=== PATIENT | female | born 1950 | race American Indian/Alaskan Native ===

== ENCOUNTER 2017-06-04 18:29 | Inpatient (IN) | payer MEDICARE, MEDICAID ==
[~2017-06-04] VITALS: Ht 154.9 cm; Wt 82.1 kg
[~2017-06-04 18:29] MED LIST: ALBU8HFA PO; BLOO-579 PERCUTAN; CLIN-80 PO; CYCL-394 PO; CYCL10TA10 PO; FAMO40TA73 PO; INSU100C4 SQ; PHEN-873 PO; PRED50TA PO
[2017-06-04] MEDS ORDERED: ondansetron/PF 4mg/2ml inj IV ONE (20:10)
[2017-06-04] MEDS ORDERED: normal saline 1000ML IV soln IVB ONE (20:10)
[2017-06-04 20:45] LABS: BASOPHILS # (AUTO) 0.1 X10'3 (0-0.2); BASOPHILS % (AUTO) 0.4 % (0-1); EOSINOPHILS % (AUTO) 0.1 % (0-6); HEMATOCRIT 40.7 % (35.0-45.0); LYMPHOCYTES # (AUTO) 1.1 X10'3 (1.1-4.8); LYMPHOCYTES % (AUTO) 6.2 % (21-51); MEAN CORPUSCULAR HEMOGLOBIN 30.8 PG (27.0-31.0); MEAN CORPUSCULAR HGB CONC 34.4 % (33.0-36.5); MEAN CORPUSCULAR VOLUME 89.7 FL (78-98); MEAN PLATELET VOLUME 9.3 FL (7.4-10.4); MONOCYTES # (AUTO) 0.9 X10'3 (0-0.9); MONOCYTES % (AUTO) 5.1 % (2-12); NEUTROPHILS # (AUTO) 15.9 X10'3 (1.8-7.7); NEUTROPHILS % (AUTO) 88.2 % (42-75); PLATELET COUNT 245 X10'3 (140-440); RED BLOOD COUNT 4.54 X10'6 (4.20-5.60); RED CELL DISTRIBUTION WIDTH 12.5 % (11.5-14.5)
[2017-06-04 21:03] LABS: ALANINE AMINOTRANSFERASE 35 U/L (12-78); ALBUMIN 3.5 G/DL (3.4-5.0); ALBUMIN/GLOBULIN RATIO 0.7 (1.1-1.5); ALKALINE PHOSPHATASE 210 IU/L (46-116); ANION GAP 10 (8-16); ASPARTATE AMINO TRANSFERASE 32 U/L (10-37); BILIRUBIN,TOTAL 0.4 MG/DL (0.1-1.0); BLOOD UREA NITROGEN 50 MG/DL (7-18); BUN/CREATININE RATIO 20.8 (6.6-38.0); CALCIUM 9.1 MG/DL (8.5-10.1); CHLORIDE 98 MMOL/L (99-107); GLUCOSE 420 MG/DL (70-104); LIPASE 157 U/L (73-393); POTASSIUM 5.6 MMOL/L (3.5-5.1); SODIUM 131 MMOL/L (135-145); TOTAL CARBON DIOXIDE 23.1 MMOL/L (24-32); TOTAL PROTEIN 8.3 G/DL (6.4-8.2); eGFR 20 ML/MIN
[2017-06-04 21:52] LABS: CLARITY,URINE CLEAR (Clear); COLOR,URINE YELLOW (Yellow); GLUCOSE, URINE >=1000 mg/dl (Neg); KETONES,URINE NEGATIVE (Neg); LEUKOCYTE ESTERASE ,URINE NEGATIVE (Neg); NITRITES, URINE NEGATIVE (Neg); OCCULT BLOOD,URINE SMALL (Neg); PH,URINE 5.5 (4.8-8.0); PROTEIN,URINE 100 mg/dl (Neg); UA COLLECTION TYPE CLN CATCH MIDSTREAM; UROBILINOGEN,URINE 0.2 E.U/dL (0.2-1.0)
[2017-06-04 21:58] LABS: BACTERIA,URINE 1+ /HPF (Neg); RBC,URINE 0-2 /HPF (0-2); SQUAMOUS EPITHELIAL CELL,UR FEW /LPF (FEW)
[2017-06-04] MEDS ORDERED: levoFLOXACIN-Levaquin 500mg/D5 100 ML IV ONE (22:15)
[2017-06-04] MEDS ORDERED: CefTRIAXone 2gm/NS 100ml IVPB 100 ML IV ONE (23:05)
[2017-06-04] MEDS ORDERED: TRAM50TA2 PO (23:07)
[2017-06-04] MEDS ORDERED: ondansetron/PF 4mg/2ml inj IV PRN (23:30)
[2017-06-04] MEDS ORDERED: mag hydrox/Alum hydrox/simeth 30ml oral suspension PO PRN (23:30)
[2017-06-04] MEDS ORDERED: magnesium hydroxide 30ml (MOM) UD suspension PO PRN (23:30)
[2017-06-04] MEDS ORDERED: dextrose ORAL solution 15 GM/59 ML bottle PO PRN ×2 (23:35)
[2017-06-04] MEDS ORDERED: dextrose 50%-water 50ml dispensing syringe IV PRN ×2 (23:35)
[2017-06-04] MEDS ORDERED: MESSAGE TO PHARMACY PO ONE (23:35)
[2017-06-04] MEDS ORDERED: glucagon, human recombinant 1mg kit SUBCUT PRN (23:35)
[2017-06-04] MEDS ORDERED: ALBUTEROL PO PRN (23:40)
[2017-06-04] MEDS ORDERED: albuterol 2.5 MG/3 ML nebule NEB PRN (23:50)
[2017-06-05] MEDS ORDERED: LANTUS SQ (00:05)
[2017-06-05] MEDS ORDERED: FURO-150 PO (00:05)
[2017-06-05] MEDS ORDERED: insulin glargine (Lantus) pen - multi-dose SQ ONE (00:27)
[2017-06-05] MEDS ORDERED: insulin Lispro (HumaLOG) vial - multi-dose SQ ONE (00:27)
[2017-06-05 00:30] VITALS: BP 157/67
[2017-06-05] MEDS: insulin Lispro (HumaLOG) vial - multi-dose SQ SCH ×4 (00:35→19:04)
[2017-06-05] MEDS ORDERED: ACET-812 PO (00:41)
[2017-06-05] MEDS ORDERED: ASPI81TA52 PO (00:41)
[2017-06-05] MEDS ORDERED: LISI-642 PO (00:41)
[2017-06-05] MEDS: acetaminophen 325mg tablet PO PRN ×2 (01:28→10:04)
[2017-06-05 08:00] VITALS: BP 108/63
[2017-06-05] MEDS: CefTRIAXone 2gm/NS 100ml IVPB 100 ML IV SCH (10:02)
[2017-06-05] MEDS: heparin, porcine 5000 units/ml vial SQ SCH ×2 (10:02→20:47)
[2017-06-05] MEDS: famotidine 20mg tablet PO SCH (10:05)
[2017-06-05 11:00] VITALS: BP 125/50
[2017-06-05] MEDS: lactobacillus rhamnosus 10,000 MMU CELLS/CAPSULE PO SCH (18:07)
[2017-06-05 19:30] VITALS: BP 148/70
[2017-06-05] MEDS: insulin glargine (Lantus) pen - multi-dose SQ SCH (22:19)
[2017-06-06] VITALS: BP 149/66
[2017-06-06] MEDS: acetaminophen 325mg tablet PO PRN ×2 (02:05→21:33)
[2017-06-06] MEDS: CefTRIAXone 2gm/NS 100ml IVPB 100 ML IV SCH (07:21)
[2017-06-06] MEDS: famotidine 20mg tablet PO SCH (07:23)
[2017-06-06] MEDS: heparin, porcine 5000 units/ml vial SQ SCH ×2 (07:25→21:25)
[2017-06-06] MEDS: lactobacillus rhamnosus 10,000 MMU CELLS/CAPSULE PO SCH ×2 (07:25→18:01)
[2017-06-06 08:00] VITALS: BP 145/73
[2017-06-06] MEDS: insulin Lispro (HumaLOG) vial - multi-dose SQ SCH ×3 (09:23→18:59)
[2017-06-06 11:00] VITALS: BP 156/64
[2017-06-06 13:00] LABS: BASOPHILS % (AUTO) 0.5 % (0-1); EOSINOPHILS # (AUTO) 0.2 X10'3 (0-0.9); EOSINOPHILS % (AUTO) 3.2 % (0-6); HEMATOCRIT 34.5 % (35.0-45.0); HEMOGLOBIN 12.1 g/dl (12.0-16.0); LYMPHOCYTES # (AUTO) 2.2 X10'3 (1.1-4.8); LYMPHOCYTES % (AUTO) 39.5 % (21-51); MEAN CORPUSCULAR HEMOGLOBIN 30.9 PG (27.0-31.0); MEAN CORPUSCULAR VOLUME 88.3 FL (78-98); MEAN PLATELET VOLUME 8.1 FL (7.4-10.4); MONOCYTES # (AUTO) 0.5 X10'3 (0-0.9); MONOCYTES % (AUTO) 8.5 % (2-12); NEUTROPHILS # (AUTO) 2.7 X10'3 (1.8-7.7); NEUTROPHILS % (AUTO) 48.3 % (42-75); PLATELET COUNT 214 X10'3 (140-440); RED BLOOD COUNT 3.91 X10'6 (4.20-5.60); RED CELL DISTRIBUTION WIDTH 12.7 % (11.5-14.5); WHITE BLOOD COUNT 5.7 X10'3 (4.5-11.0)
[2017-06-06 13:12] LABS: ALBUMIN 2.9 G/DL (3.4-5.0); ANION GAP 8 (8-16); BLOOD UREA NITROGEN 28 MG/DL (7-18); BUN/CREATININE RATIO 16.8 (6.6-38.0); CALCIUM 8.9 MG/DL (8.5-10.1); CHLORIDE 105 MMOL/L (99-107); CREATININE 1.67 MG/DL (0.40-0.90); GLUCOSE 166 MG/DL (70-104); POTASSIUM 4.4 MMOL/L (3.5-5.1); SODIUM 140 MMOL/L (135-145); eGFR 31 ML/MIN
[2017-06-06 19:00] VITALS: BP 167/78
[2017-06-06] MEDS: insulin glargine (Lantus) pen - multi-dose SQ SCH (21:31)
[2017-06-06] MEDS ORDERED: levoFLOXACIN-Levaquin 750MG/D5 150 ML IV SCH (22:00)
[2017-06-07 00:15] VITALS: BP 140/78
[2017-06-07] MEDS: lactobacillus rhamnosus 10,000 MMU CELLS/CAPSULE PO SCH (07:39)
[2017-06-07] MEDS: famotidine 20mg tablet PO SCH (07:40)
[2017-06-07] MEDS: CefTRIAXone 2gm/NS 100ml IVPB 100 ML IV SCH (07:40)
[2017-06-07 08:00] VITALS: BP 179/84
[2017-06-07] MEDS: heparin, porcine 5000 units/ml vial SQ SCH (09:05)
[2017-06-07] MEDS: insulin Lispro (HumaLOG) vial - multi-dose SQ SCH (09:14)
[2017-06-07 10:17] LABS: CLARITY,URINE CLEAR (Clear); COLOR,URINE STRAW (Yellow); GLUCOSE, URINE >=1000 mg/dl (Neg); KETONES,URINE NEGATIVE (Neg); LEUKOCYTE ESTERASE ,URINE NEGATIVE (Neg); NITRITES, URINE NEGATIVE (Neg); OCCULT BLOOD,URINE TRACE-LYSED (Neg); PROTEIN,URINE 30 mg/dl (Neg); UROBILINOGEN,URINE 0.2 E.U/dL (0.2-1.0)
[2017-06-07 10:20] LABS: UA COLLECTION TYPE NON-SPECIFIED
[2017-06-07 10:28] LABS: BACTERIA,URINE NONE SEEN /HPF (Neg); MUCUS STRANDS NONE SEEN /LPF (Neg); RBC,URINE NONE SEEN /HPF (0-2); SQUAMOUS EPITHELIAL CELL,UR FEW /LPF (FEW); WBC,URINE 0-4 /HPF (0-4)
[2017-06-07 10:29] LABS: TRANSITIONAL EPI CELLS,URINE FEW /HPF
[2017-06-07 11:32] VITALS: BP 115/70
[2017-06-07] MEDS ORDERED: AMLO-93 PO (11:54)
[2017-06-07] MEDS ORDERED: SULF1TAB49 PO (11:54)
== END 2017-06-07 13:15 | disposition home or self-care (01) | DRG 872 ==
LOC: ER 18:29 → ED HOLD 23:27 → EDBEDREQ 23:34 → MED 3N 06-05 00:15
PROVIDERS: ADMIT Internal Medicine; ATTEND Internal Medicine
DX: A41.9 Sepsis, unspecified organism (principal); N17.9 Acute kidney failure, unspecified; E11.22 Type 2 diabetes mellitus with diabetic chronic kidney disease; E11.42 Type 2 diabetes mellitus with diabetic polyneuropathy; N30.80 Other cystitis without hematuria; N18.3 Chronic kidney disease, stage 3 (moderate); M19.90 Unspecified osteoarthritis, unspecified site; E87.8 Other disorders of electrolyte and fluid balance, not elsewhere classified; E11.65 Type 2 diabetes mellitus with hyperglycemia; E86.0 Dehydration; I12.9 Hypertensive chronic kidney disease with stage 1 through stage 4 chronic kidney disease, or unspecified chronic kidney disease; I25.10 Atherosclerotic heart disease of native coronary artery without angina pectoris; J45.909 Unspecified asthma, uncomplicated; Z90.721 Acquired absence of ovaries, unilateral; Z95.1 Presence of aortocoronary bypass graft; Z88.0 Allergy status to penicillin; Z79.4 Long term (current) use of insulin; Z79.82 Long term (current) use of aspirin; Z79.899 Other long term (current) drug therapy; Z87.442 Personal history of urinary calculi
CPT/HCPCS: 36415; 74176; 80048; 80053; 81001; 82948; 83036; 83605; 83690; 85025; 87040; 87070; 87088; 93005; 94760; 99285; J0696; J1644; J1815; J1956; J2405; J7030